=== PATIENT | male | born 1955 | race Caucasian/White ===

== ENCOUNTER 2022-06-28 11:13 | Inpatient (IN) | payer MEDICARE, MEDICAID ==
[~2022-06-28] VITALS: Ht 175.3 cm; Wt 76.2 kg
[2022-06-28] VITALS (20 sets, daily range): BP systolic 106–146; BP diastolic 49–87
[2022-06-28] MEDS ORDERED: SODIUM CHLORIDE 0.9% 1,000 ML IV ONE (11:30)
[2022-06-28 12:05] LABS: BASOPHILS % 0.3 % (0.0-2.0); EOSINOPHILS % 0.1 % (0.0-5.0); HEMATOCRIT. 52.4 % (42.0-52.0); HEMOGLOBIN. 18.3 g/dL (14.0-18.0); LYMPHOCYTES % 7.3 % (20.0-50.0); MEAN CORPUSCULAR HEMOGLOBIN 35.5 pg (28.0-32.0); MEAN CORPUSCULAR VOLUME 101.7 fL (80.0-94.0); MEAN PLATELET VOLUME 8.4 fl (7.4-10.4); MONOCYTES % 11.4 % (2.0-8.0); NEUTROPHILS % 80.9 % (40.0-76.0); PLATELET 310 x1000/uL (130-400); RED BLOOD CELL COUNT 5.16 mill/uL (4.7-6.1)
[2022-06-28 12:17] LABS: CHLORIDE 97 mEq/L (98-107)
[2022-06-28 12:19] LABS: PROTHROMBIN TIME 10.3 sec (9.6-11.0)
[2022-06-28 12:28] LABS: ETHANOL BLOOD < 10 mg/dL
[2022-06-28] MEDS ORDERED: MANNITOL 12.5G (25%) VIAL 50ML IV ONE (13:15)
[2022-06-28] MEDS ORDERED: LEVETIRACETAM 500MG PREMIX 100 ML IV ONE (13:15)
[2022-06-28] MEDS ORDERED: NICARDIPINE 40MG/200ML PREMIX 200 ML IV PRN (15:00)
[2022-06-28] MEDS ORDERED: NICARDIPINE 100 MG in SODIUM CHLORIDE 0.9% 60 ML IV PRN ×2 (18:30→18:45)
[2022-06-28] MEDS ORDERED: DEXT 5%/LACTATED RINGERS 1,000 ML IV SCH (18:30)
[2022-06-28] MEDS ORDERED: MORPHINE SULFATE 2 MG/ML CPJ (NOT FOR IM USE) IV PRN (18:30)
[2022-06-28] MEDS ORDERED: ONDANSETRON HCL 4MG/2ML INJ IV PRN (18:45)
[2022-06-28] MEDS: DEXAMETHASONE 4MG/ML 1ML VIAL IV SCH (18:57)
[2022-06-28] MEDS ORDERED: FOLIC ACID 1 MG, THIAMINE HCL 100 MG, MVI, ADULT NO.1 10 ML in DEXTROSE 5% WATER 1,000 ML IV ONE ×4 (20:00)
[2022-06-28] MEDS ORDERED: DEXT 5%/0.45% NACL KCL 10MEQ/L 1,000 ML IV ONE (20:00)
[2022-06-28] MEDS: FAMOTIDINE 20MG/2ML VIAL IV SCH (21:09)
[2022-06-28] MEDS: LEVETIRACETAM 250 MG in SODIUM CHLORIDE 0.9% 100 ML IV SCH (21:11)
[2022-06-28 21:31] LABS: VITAMIN B12 SERUM 922 pg/mL (211-911)
[2022-06-28] MEDS: PIPERACILLIN/TAZOBACTAM 3.375 G in DEXTROSE 5% WATER 50 ML IV SCH (22:35)
[2022-06-28 22:36] LABS: CLARITY URINE CLEAR (CLEAR); COLOR URINE YELLOW (YELLOW); KETONES URINE 1+ (NEGATIVE); LEUKOCYTE ESTERASE URINE NEGATIVE (NEGATIVE); NITRITE URINE NEGATIVE (NEGATIVE); OCCULT BLOOD URINE 2+ (NEGATIVE); PH URINE 5.5 (4.5-8.0); PROTEIN URINE TRACE (NEGATIVE); SPECIFIC GRAVITY URINE 1.024 (1.005-1.030)
[2022-06-28 22:42] LABS: *AMPHETAMINES SCREEN URINE NEGATIVE (NEGATIVE); *BARBITURATES SCREEN URINE NEGATIVE (NEGATIVE); *BENZODIAZEPINES SCREEN URINE NEGATIVE (NEGATIVE); *COCAINE SCREEN URINE NEGATIVE (NEGATIVE); CANNABINOID URINE SCREEN NEGATIVE (NEGATIVE); METHADONE URINE SCREEN NEGATIVE (NEGATIVE); OPIATES URINE SCREEN NEGATIVE (NEGATIVE); PHENCYCLIDINE URINE SCREEN NEGATIVE (NEGATIVE)
[2022-06-29] VITALS (57 sets, daily range): BP systolic 106–147; BP diastolic 56–90
[2022-06-29] MEDS: DEXAMETHASONE 4MG/ML 1ML VIAL IV SCH ×4 (00:43→17:45)
[2022-06-29] MEDS: DEXAMETHASONE 4MG TABLET PO SCH ×4 (05:45→17:43)
[2022-06-29] MEDS: PIPERACILLIN/TAZOBACTAM 3.375 G in DEXTROSE 5% WATER 50 ML IV SCH ×3 (05:48→22:05)
[2022-06-29 06:14] LABS: HEMATOCRIT. 46.7 % (42.0-52.0); HEMOGLOBIN. 15.7 g/dL (14.0-18.0); MEAN CORPUSCULAR HEMOGLOBIN 34.7 pg (28.0-32.0); MEAN CORPUSCULAR VOLUME 103.5 fL (80.0-94.0); MEAN PLATELET VOLUME 8.4 fl (7.4-10.4); PLATELET 275 x1000/uL (130-400); RED BLOOD CELL COUNT 4.51 mill/uL (4.7-6.1); RED CELL DISTRIBUTION WIDTH 13.7 % (11.6-14.6)
[2022-06-29 06:39] LABS: CHLORIDE 105 mEq/L (98-107)
[2022-06-29 06:47] LABS: CREATINE KINASE 800 IU/L (39-308); HDL CHOLESTEROL 87 mg/dL (40-59); LDL CHOLESTEROL 55 mg/dL (5-100)
[2022-06-29 09:23] LABS: PLATELET ESTIMATE NORMAL
[2022-06-29] MEDS: FAMOTIDINE 20MG/2ML VIAL IV SCH ×2 (10:15→22:05)
[2022-06-29] MEDS: LEVETIRACETAM 250 MG in SODIUM CHLORIDE 0.9% 100 ML IV SCH ×2 (10:15→22:05)
[2022-06-29] MEDS ORDERED: NALOXONE HCL 0.4MG/ML VIAL IV PRN (11:45)
[2022-06-30] VITALS (38 sets, daily range): BP systolic 124–171; BP diastolic 32–131
[2022-06-30 04:48] LABS: CHLORIDE 102 mEq/L (98-107)
[2022-06-30 04:55] LABS: HEMATOCRIT. 41.6 % (42.0-52.0); HEMOGLOBIN. 14.3 g/dL (14.0-18.0); MEAN CORPUSCULAR HEMOGLOBIN 35.4 pg (28.0-32.0); MEAN CORPUSCULAR VOLUME 102.8 fL (80.0-94.0); MEAN PLATELET VOLUME 8.4 fl (7.4-10.4); PLATELET 310 x1000/uL (130-400); RED BLOOD CELL COUNT 4.05 mill/uL (4.7-6.1); RED CELL DISTRIBUTION WIDTH 13.7 % (11.6-14.6)
[2022-06-30] MEDS: DEXAMETHASONE 4MG TABLET PO SCH ×2 (05:02)
[2022-06-30] MEDS: PIPERACILLIN/TAZOBACTAM 3.375 G in DEXTROSE 5% WATER 50 ML IV SCH ×3 (05:17→21:53)
[2022-06-30] MEDS: DEXAMETHASONE 4MG/ML 1ML VIAL IV SCH ×3 (05:17→09:40)
[2022-06-30 07:52] LABS: PLATELET ESTIMATE NORMAL
[2022-06-30] MEDS: LEVETIRACETAM 250 MG in SODIUM CHLORIDE 0.9% 100 ML IV SCH ×2 (09:40→21:53)
[2022-06-30] MEDS: FAMOTIDINE 20MG/2ML VIAL IV SCH ×2 (09:40→20:01)
[2022-06-30] MEDS: CHLORDIAZEPOXIDE 25MG CAPSULE PO SCH ×2 (13:00→20:01)
[2022-07-01] VITALS (82 sets, daily range): BP systolic 92–152; BP diastolic 55–107
[2022-07-01] MEDS: PIPERACILLIN/TAZOBACTAM 3.375 G in DEXTROSE 5% WATER 50 ML IV SCH ×2 (06:50→13:59)
[2022-07-01] MEDS: DEXAMETHASONE 4MG/ML 1ML VIAL IV SCH (09:16)
[2022-07-01] MEDS: FAMOTIDINE 20MG/2ML VIAL IV SCH ×2 (09:16→21:06)
[2022-07-01] MEDS: LEVETIRACETAM 250 MG in SODIUM CHLORIDE 0.9% 100 ML IV SCH ×2 (09:16→21:02)
[2022-07-01] MEDS: AMLODIPINE 10MG TABLET PO SCH (09:16)
[2022-07-01] MEDS: CHLORDIAZEPOXIDE 25MG CAPSULE PO SCH ×2 (09:20→13:58)
[2022-07-01] MEDS ORDERED: MANNITOL 20% (20GM/100ML) BAG 500ML PREMIX IV ONE (23:30)
[2022-07-01] MEDS ORDERED: MANNITOL 20% 100 ML IV NR (23:30)
[2022-07-02] VITALS (51 sets, daily range): BP systolic 103–153; BP diastolic 59–111
[2022-07-02 05:05] LABS: EOSINOPHILS % 0.1 % (0.0-5.0); HEMATOCRIT. 44.2 % (42.0-52.0); HEMOGLOBIN. 15.1 g/dL (14.0-18.0); LYMPHOCYTES % 11.7 % (20.0-50.0); MEAN CORPUSCULAR HEMOGLOBIN 35.4 pg (28.0-32.0); MEAN CORPUSCULAR VOLUME 103.4 fL (80.0-94.0); MEAN PLATELET VOLUME 7.9 fl (7.4-10.4); MONOCYTES % 13.6 % (2.0-8.0); NEUTROPHILS % 74.6 % (40.0-76.0); PLATELET 305 x1000/uL (130-400); RED BLOOD CELL COUNT 4.28 mill/uL (4.7-6.1); RED CELL DISTRIBUTION WIDTH 13.4 % (11.6-14.6)
[2022-07-02 05:21] LABS: CHLORIDE 106 mEq/L (98-107)
[2022-07-02] MEDS: FAMOTIDINE 20MG/2ML VIAL IV SCH ×2 (08:26→21:35)
[2022-07-02] MEDS: AMLODIPINE 10MG TABLET PO SCH (08:26)
[2022-07-02] MEDS: LEVETIRACETAM 250 MG in SODIUM CHLORIDE 0.9% 100 ML IV SCH ×2 (09:55→21:35)
[2022-07-03] VITALS (49 sets, daily range): BP systolic 99–157; BP diastolic 59–89
[2022-07-03 05:08] LABS: HEMATOCRIT 43.9 % (42.0-52.0); HEMOGLOBIN 14.5 g/dL (14.0-18.0); MEAN CORPUSCULAR HEMOGLOBIN 34.2 pg (28.0-32.0); MEAN CORPUSCULAR VOLUME 103.3 fL (80.0-94.0); PLATELET 334 x1000/uL (130-400); RED BLOOD CELL COUNT 4.25 mill/uL (4.7-6.1); RED CELL DISTRIBUTION WIDTH 13.6 % (11.6-14.6)
[2022-07-03 05:30] LABS: CHLORIDE 107 mEq/L (98-107)
[2022-07-03] MEDS: AMLODIPINE 10MG TABLET PO SCH (08:07)
[2022-07-03] MEDS: FAMOTIDINE 20MG/2ML VIAL IV SCH ×2 (08:07→21:42)
[2022-07-03] MEDS: LEVETIRACETAM 250 MG in SODIUM CHLORIDE 0.9% 100 ML IV SCH ×2 (08:59→21:42)
[2022-07-03] MEDS: ERYTHROMYCIN BASE 0.5% OPHTH OINT 3.5GM LEFTEYE SCH ×2 (15:04→21:43)
[2022-07-04] VITALS (25 sets, daily range): BP systolic 110–169; BP diastolic 67–104
[2022-07-04] MEDS: ERYTHROMYCIN BASE 0.5% OPHTH OINT 3.5GM LEFTEYE SCH ×3 (06:39→21:10)
[2022-07-04] MEDS: FAMOTIDINE 20MG/2ML VIAL IV SCH ×2 (08:12→20:51)
[2022-07-04] MEDS: AMLODIPINE 10MG TABLET PO SCH (08:12)
[2022-07-04] MEDS: LEVETIRACETAM 250 MG in SODIUM CHLORIDE 0.9% 100 ML IV SCH ×2 (08:12→21:00)
[2022-07-05 00:22] VITALS: BP 123/78
[2022-07-05 04:11] VITALS: BP 117/73
[2022-07-05] MEDS: ERYTHROMYCIN BASE 0.5% OPHTH OINT 3.5GM LEFTEYE SCH ×3 (05:27→20:58)
[2022-07-05 08:00] VITALS: BP 122/71
[2022-07-05] MEDS: AMLODIPINE 10MG TABLET PO SCH (09:00)
[2022-07-05] MEDS: FAMOTIDINE 20MG/2ML VIAL IV SCH ×2 (09:31→20:58)
[2022-07-05] MEDS: LEVETIRACETAM 250 MG in SODIUM CHLORIDE 0.9% 100 ML IV SCH ×2 (09:31→20:57)
[2022-07-05] MEDS ORDERED: BARIUM SULFATE 176 GM SUSP.RECON ONE (11:00)
[2022-07-05 16:00] VITALS: BP 114/67
[2022-07-05 20:00] VITALS: BP 116/68
[2022-07-06] VITALS: BP 129/84
[2022-07-06 04:00] VITALS: BP 110/69
[2022-07-06] MEDS: ERYTHROMYCIN BASE 0.5% OPHTH OINT 3.5GM LEFTEYE SCH ×3 (05:12→21:25)
[2022-07-06 08:00] VITALS: BP 125/87
[2022-07-06] MEDS: LEVETIRACETAM 250 MG in SODIUM CHLORIDE 0.9% 100 ML IV SCH (09:15)
[2022-07-06] MEDS: FAMOTIDINE 20MG/2ML VIAL IV SCH (09:15)
[2022-07-06] MEDS: AMLODIPINE 10MG TABLET PO SCH (09:16)
[2022-07-06] MEDS: DOCUSATE SODIUM SUGAR FREE 100MG/10ML UDC PO SCH (11:59)
[2022-07-06 12:00] VITALS: BP 127/77
[2022-07-06 13:26] LABS: BASOPHILS % 0.5 % (0.0-2.0); EOSINOPHILS % 0.7 % (0.0-5.0); HEMATOCRIT. 42.8 % (42.0-52.0); HEMOGLOBIN. 14.6 g/dL (14.0-18.0); LYMPHOCYTES % 7.3 % (20.0-50.0); MEAN CORPUSCULAR HEMOGLOBIN 34.6 pg (28.0-32.0); MEAN CORPUSCULAR VOLUME 101.7 fL (80.0-94.0); MEAN PLATELET VOLUME 8.5 fl (7.4-10.4); MONOCYTES % 12.2 % (2.0-8.0); NEUTROPHILS % 79.3 % (40.0-76.0); PLATELET 404 x1000/uL (130-400); RED BLOOD CELL COUNT 4.21 mill/uL (4.7-6.1); RED CELL DISTRIBUTION WIDTH 13.5 % (11.6-14.6)
[2022-07-06 13:34] LABS: PROTHROMBIN TIME 10.5 sec (9.6-11.0)
[2022-07-06 14:33] LABS: CHLORIDE 106 mEq/L (98-107)
[2022-07-06 16:00] VITALS: BP 120/80
[2022-07-06 20:00] VITALS: BP 119/73
[2022-07-06] MEDS: SENNOSIDES 8.6MG TABLET PO SCH (21:24)
[2022-07-06] MEDS: FAMOTIDINE 20MG TABLET PO SCH (21:24)
[2022-07-06] MEDS: LEVETIRACETAM 250MG TABLET PO SCH (21:31)
[2022-07-07] VITALS: BP 118/72
[2022-07-07 04:00] VITALS: BP 107/71
[2022-07-07] MEDS: ERYTHROMYCIN BASE 0.5% OPHTH OINT 3.5GM LEFTEYE SCH ×3 (06:20→21:25)
[2022-07-07 08:00] VITALS: BP 114/68
[2022-07-07] MEDS: DOCUSATE SODIUM SUGAR FREE 100MG/10ML UDC PO SCH (09:08)
[2022-07-07] MEDS: FAMOTIDINE 20MG TABLET PO SCH ×2 (09:09→20:15)
[2022-07-07] MEDS: AMLODIPINE 10MG TABLET PO SCH (09:09)
[2022-07-07] MEDS: LEVETIRACETAM 250MG TABLET PO SCH ×2 (09:11→20:16)
[2022-07-07 12:00] VITALS: BP 104/71
[2022-07-07 16:00] VITALS: BP 112/70
[2022-07-07 20:00] VITALS: BP 114/71
[2022-07-07] MEDS: SENNOSIDES 8.6MG TABLET PO SCH (20:16)
[2022-07-08] VITALS: BP 106/68
[2022-07-08 04:00] VITALS: BP_SYST 104; BP_SYST 111; BP_DIAS 68; BP_DIAS 74
[2022-07-08] MEDS: ERYTHROMYCIN BASE 0.5% OPHTH OINT 3.5GM LEFTEYE SCH ×3 (05:14→21:11)
[2022-07-08 08:00] VITALS: BP 113/70
[2022-07-08] MEDS: LEVETIRACETAM 250MG TABLET PO SCH ×2 (09:32→21:10)
[2022-07-08] MEDS: AMLODIPINE 10MG TABLET PO SCH (09:32)
[2022-07-08] MEDS: FAMOTIDINE 20MG TABLET PO SCH ×2 (09:32→21:11)
[2022-07-08] MEDS: DOCUSATE SODIUM SUGAR FREE 100MG/10ML UDC PO SCH (09:33)
[2022-07-08 12:00] VITALS: BP 119/69
[2022-07-08 16:00] VITALS: BP 104/68
[2022-07-08 20:00] VITALS: BP 124/75
[2022-07-08] MEDS: SENNOSIDES 8.6MG TABLET PO SCH (21:11)
[2022-07-08] MEDS: ACETAMINOPHEN 325MG TABLET PO PRN (21:12)
[2022-07-09] VITALS (11 sets, daily range): BP systolic 106–135; BP diastolic 73–87
[2022-07-09] MEDS: ERYTHROMYCIN BASE 0.5% OPHTH OINT 3.5GM LEFTEYE SCH ×3 (06:01→22:33)
[2022-07-09] MEDS: AMLODIPINE 10MG TABLET PO SCH (09:00)
[2022-07-09] MEDS: DOCUSATE SODIUM SUGAR FREE 100MG/10ML UDC PO SCH (09:15)
[2022-07-09] MEDS: FAMOTIDINE 20MG TABLET PO SCH ×2 (09:15→22:31)
[2022-07-09] MEDS: LEVETIRACETAM 250MG TABLET PO SCH ×2 (09:16→22:31)
[2022-07-09] MEDS: SENNOSIDES 8.6MG TABLET PO SCH (22:31)
[2022-07-10] VITALS (10 sets, daily range): BP systolic 105–136; BP diastolic 64–80
[2022-07-10] MEDS: ERYTHROMYCIN BASE 0.5% OPHTH OINT 3.5GM LEFTEYE SCH ×2 (07:13→15:37)
[2022-07-10] MEDS: AMLODIPINE 10MG TABLET PO SCH (09:09)
[2022-07-10] MEDS: FAMOTIDINE 20MG TABLET PO SCH ×2 (09:09→20:48)
[2022-07-10] MEDS: DOCUSATE SODIUM SUGAR FREE 100MG/10ML UDC PO SCH (09:09)
[2022-07-10] MEDS: LEVETIRACETAM 250MG TABLET PO SCH ×2 (09:09→20:48)
[2022-07-10] MEDS: SENNOSIDES 8.6MG TABLET PO SCH (20:48)
[2022-07-11] VITALS: BP 94/63
[2022-07-11 04:00] VITALS: BP 107/71
[2022-07-11 08:00] VITALS: BP 113/67
[2022-07-11] MEDS: DOCUSATE SODIUM SUGAR FREE 100MG/10ML UDC PO SCH (09:21)
[2022-07-11] MEDS: FAMOTIDINE 20MG TABLET PO SCH ×2 (09:22→20:53)
[2022-07-11] MEDS: LEVETIRACETAM 250MG TABLET PO SCH ×2 (09:22→20:53)
[2022-07-11] MEDS: AMLODIPINE 10MG TABLET PO SCH (09:22)
[2022-07-11 12:00] VITALS: BP 112/72
[2022-07-11 16:00] VITALS: BP 111/70
[2022-07-11 20:00] VITALS: BP 126/78
[2022-07-11] MEDS: SENNOSIDES 8.6MG TABLET PO SCH (20:53)
[2022-07-12] VITALS: BP 115/75
[2022-07-12 04:00] VITALS: BP 134/84
[2022-07-12 08:00] VITALS: BP 123/72
[2022-07-12] MEDS: AMLODIPINE 10MG TABLET PO SCH (08:32)
[2022-07-12] MEDS: DOCUSATE SODIUM SUGAR FREE 100MG/10ML UDC PO SCH (08:33)
[2022-07-12] MEDS: FOLIC ACID 1MG TABLET PO SCH (08:33)
[2022-07-12] MEDS: FAMOTIDINE 20MG TABLET PO SCH ×2 (08:33→21:08)
[2022-07-12] MEDS: LEVETIRACETAM 250MG TABLET PO SCH ×2 (08:33→21:08)
[2022-07-12] MEDS: MULTIVITAMINS,THER W-MINERALS TABLET PO SCH (08:33)
[2022-07-12] MEDS: THIAMINE HCL 100MG TABLET PO SCH (08:40)
[2022-07-12 12:00] VITALS: BP 147/89
[2022-07-12 16:00] VITALS: BP 110/74
[2022-07-12 20:00] VITALS: BP 112/70
[2022-07-12] MEDS: SENNOSIDES 8.6MG TABLET PO SCH (21:08)
[2022-07-13] VITALS: BP 134/93
[2022-07-13 04:00] VITALS: BP 124/78
[2022-07-13 08:00] VITALS: BP 113/71
[2022-07-13] MEDS: THIAMINE HCL 100MG TABLET PO SCH (09:21)
[2022-07-13] MEDS: DOCUSATE SODIUM SUGAR FREE 100MG/10ML UDC PO SCH (09:21)
[2022-07-13] MEDS: FOLIC ACID 1MG TABLET PO SCH (09:21)
[2022-07-13] MEDS: FAMOTIDINE 20MG TABLET PO SCH ×2 (09:21→20:32)
[2022-07-13] MEDS: MULTIVITAMINS,THER W-MINERALS TABLET PO SCH (09:21)
[2022-07-13] MEDS: AMLODIPINE 10MG TABLET PO SCH (09:21)
[2022-07-13] MEDS: LEVETIRACETAM 250MG TABLET PO SCH ×2 (09:21→20:32)
[2022-07-13 12:00] VITALS: BP_SYST 100; BP_SYST 122; BP_DIAS 65; BP_DIAS 89
[2022-07-13 16:00] VITALS: BP 108/65
[2022-07-13 20:00] VITALS: BP 114/69
[2022-07-13] MEDS: SENNOSIDES 8.6MG TABLET PO SCH (20:32)
[2022-07-14] VITALS: BP 120/72
[2022-07-14 04:00] VITALS: BP 115/75
[2022-07-14 08:00] VITALS: BP 115/75
[2022-07-14] MEDS: DOCUSATE SODIUM SUGAR FREE 100MG/10ML UDC PO SCH (09:35)
[2022-07-14] MEDS: FOLIC ACID 1MG TABLET PO SCH (09:36)
[2022-07-14] MEDS: FAMOTIDINE 20MG TABLET PO SCH ×2 (09:36→21:31)
[2022-07-14] MEDS: LEVETIRACETAM 250MG TABLET PO SCH ×2 (09:36→21:31)
[2022-07-14] MEDS: AMLODIPINE 10MG TABLET PO SCH (09:36)
[2022-07-14] MEDS: MULTIVITAMINS,THER W-MINERALS TABLET PO SCH (09:36)
[2022-07-14] MEDS: THIAMINE HCL 100MG TABLET PO SCH (09:50)
[2022-07-14 12:00] VITALS: BP 115/72
[2022-07-14 16:00] VITALS: BP 102/69
[2022-07-14 20:00] VITALS: BP 114/66
[2022-07-14] MEDS: SENNOSIDES 8.6MG TABLET PO SCH (21:31)
[2022-07-14 21:46] LABS: BASOPHILS % 0.9 % (0.0-2.0); CHLORIDE 105 mEq/L (98-107); EOSINOPHILS % 1.7 % (0.0-5.0); HEMATOCRIT. 40.5 % (42.0-52.0); HEMOGLOBIN. 13.9 g/dL (14.0-18.0); LYMPHOCYTES % 17.3 % (20.0-50.0); MEAN CORPUSCULAR HEMOGLOBIN 34.6 pg (28.0-32.0); MEAN CORPUSCULAR VOLUME 101.2 fL (80.0-94.0); MEAN PLATELET VOLUME 8.7 fl (7.4-10.4); MONOCYTES % 10.2 % (2.0-8.0); NEUTROPHILS % 69.9 % (40.0-76.0); PLATELET 406 x1000/uL (130-400); RED BLOOD CELL COUNT 4.01 mill/uL (4.7-6.1); RED CELL DISTRIBUTION WIDTH 13.2 % (11.6-14.6)
[2022-07-15] VITALS: BP 115/76
[2022-07-15 04:00] VITALS: BP 110/80
[2022-07-15 08:00] VITALS: BP 107/73
[2022-07-15] MEDS: AMLODIPINE 10MG TABLET PO SCH (09:00)
[2022-07-15] MEDS: THIAMINE HCL 100MG TABLET PO SCH (09:07)
[2022-07-15] MEDS: FAMOTIDINE 20MG TABLET PO SCH ×2 (09:07→20:13)
[2022-07-15] MEDS: DOCUSATE SODIUM SUGAR FREE 100MG/10ML UDC PO SCH (09:07)
[2022-07-15] MEDS: LEVETIRACETAM 250MG TABLET PO SCH ×2 (09:07→20:13)
[2022-07-15] MEDS: FOLIC ACID 1MG TABLET PO SCH (09:07)
[2022-07-15] MEDS: MULTIVITAMINS,THER W-MINERALS TABLET PO SCH (09:07)
[2022-07-15 12:00] VITALS: BP 104/69
[2022-07-15 16:00] VITALS: BP 116/71
[2022-07-15 20:00] VITALS: BP 123/75
[2022-07-15] MEDS: SENNOSIDES 8.6MG TABLET PO SCH (20:13)
[2022-07-16] VITALS: BP 112/72
[2022-07-16 04:00] VITALS: BP 122/70
[2022-07-16 08:00] VITALS: BP 134/91
[2022-07-16] MEDS: DOCUSATE SODIUM SUGAR FREE 100MG/10ML UDC PO SCH (09:00)
[2022-07-16 12:00] VITALS: BP 114/71
[2022-07-16] MEDS: FOLIC ACID 1MG TABLET PO SCH (12:25)
[2022-07-16] MEDS: AMLODIPINE 10MG TABLET PO SCH (12:26)
[2022-07-16] MEDS: LEVETIRACETAM 250MG TABLET PO SCH ×2 (12:26→20:51)
[2022-07-16] MEDS: FAMOTIDINE 20MG TABLET PO SCH ×2 (12:27→20:51)
[2022-07-16] MEDS: THIAMINE HCL 100MG TABLET PO SCH (12:27)
[2022-07-16] MEDS: MULTIVITAMINS,THER W-MINERALS TABLET PO SCH (12:27)
[2022-07-16] MEDS: ACETAMINOPHEN 325MG TABLET PO PRN (12:28)
[2022-07-16 16:00] VITALS: BP 106/65
[2022-07-16 20:00] VITALS: BP 95/57
[2022-07-16] MEDS: SENNOSIDES 8.6MG TABLET PO SCH (20:52)
[2022-07-17] VITALS: BP 116/77
[2022-07-17 04:00] VITALS: BP 94/58
[2022-07-17 07:15] LABS: HEMATOCRIT 41.5 % (42.0-52.0); HEMOGLOBIN 14.2 g/dL (14.0-18.0); MEAN CORPUSCULAR HEMOGLOBIN 34.6 pg (28.0-32.0); MEAN CORPUSCULAR VOLUME 100.9 fL (80.0-94.0); PLATELET 363 x1000/uL (130-400); RED BLOOD CELL COUNT 4.11 mill/uL (4.7-6.1); RED CELL DISTRIBUTION WIDTH 13.6 % (11.6-14.6)
[2022-07-17 08:00] VITALS: BP 135/68
[2022-07-17 08:57] LABS: CHLORIDE 108 mEq/L (98-107)
[2022-07-17] MEDS: FAMOTIDINE 20MG TABLET PO SCH ×2 (09:33→20:18)
[2022-07-17] MEDS: FOLIC ACID 1MG TABLET PO SCH (09:33)
[2022-07-17] MEDS: THIAMINE HCL 100MG TABLET PO SCH (09:33)
[2022-07-17] MEDS: AMLODIPINE 10MG TABLET PO SCH (09:42)
[2022-07-17] MEDS: LEVETIRACETAM 250MG TABLET PO SCH ×2 (09:42→20:18)
[2022-07-17] MEDS: DOCUSATE SODIUM SUGAR FREE 100MG/10ML UDC PO SCH (09:43)
[2022-07-17] MEDS: MULTIVITAMINS,THER W-MINERALS TABLET PO SCH (09:45)
[2022-07-17 12:00] VITALS: BP 112/72
[2022-07-17 16:00] VITALS: BP 114/83
[2022-07-17 20:00] VITALS: BP 116/74
[2022-07-17] MEDS: SENNOSIDES 8.6MG TABLET PO SCH (20:18)
[2022-07-18] VITALS: BP 115/79
[2022-07-18 04:00] VITALS: BP 120/77
[2022-07-18 08:00] VITALS: BP 102/55
[2022-07-18] MEDS: AMLODIPINE 10MG TABLET PO SCH (09:00)
[2022-07-18] MEDS: FAMOTIDINE 20MG TABLET PO SCH ×2 (09:47→20:34)
[2022-07-18] MEDS: FOLIC ACID 1MG TABLET PO SCH (09:47)
[2022-07-18] MEDS: DOCUSATE SODIUM SUGAR FREE 100MG/10ML UDC PO SCH (09:47)
[2022-07-18] MEDS: LEVETIRACETAM 250MG TABLET PO SCH ×2 (09:48→20:33)
[2022-07-18] MEDS: MULTIVITAMINS,THER W-MINERALS TABLET PO SCH (09:48)
[2022-07-18] MEDS: THIAMINE HCL 100MG TABLET PO SCH (09:55)
[2022-07-18 12:00] VITALS: BP 126/77
[2022-07-18 16:00] VITALS: BP 115/76
[2022-07-18] MEDS: SENNOSIDES 8.6MG TABLET PO SCH (20:33)
[2022-07-19] VITALS (7 sets, daily range): BP systolic 99–124; BP diastolic 57–84
[2022-07-19] MEDS: DOCUSATE SODIUM SUGAR FREE 100MG/10ML UDC PO SCH (09:02)
[2022-07-19] MEDS: FOLIC ACID 1MG TABLET PO SCH (09:03)
[2022-07-19] MEDS: FAMOTIDINE 20MG TABLET PO SCH (09:03)
[2022-07-19] MEDS: THIAMINE HCL 100MG TABLET PO SCH (09:03)
[2022-07-19] MEDS: MULTIVITAMINS,THER W-MINERALS TABLET PO SCH (09:03)
[2022-07-19] MEDS: LEVETIRACETAM 250MG TABLET PO SCH (09:04)
[2022-07-19] MEDS: AMLODIPINE 10MG TABLET PO SCH (09:04)
== END 2022-07-19 20:46 | DRG 65 ==
LOC: ER 11:13 → MICUSO 15:54 → EDBEDREQTM 16:00 → EDBEDREQ 16:00 → EDBEDREQSVC 16:00 → 7EST 07-04 19:05 → 6EST 07-15 09:39
PROVIDERS: ADMIT Internal Medicine Pulmonary Disease; ATTEND Internal Medicine Pulmonary Disease
DX: I61.3 Nontraumatic intracerebral hemorrhage in brain stem (principal); G81.91 Hemiplegia, unspecified affecting right dominant side; N17.9 Acute kidney failure, unspecified; G93.40 Encephalopathy, unspecified; R47.01 Aphasia; I10 Essential (primary) hypertension; Z20.822 Contact with and (suspected) exposure to COVID-19; D72.829 Elevated white blood cell count, unspecified; R53.1 Weakness; R13.10 Dysphagia, unspecified; G51.0 Bell's palsy; F10.10 Alcohol abuse, uncomplicated; Z86.73 Personal history of transient ischemic attack (TIA), and cerebral infarction without residual deficits
CPT/HCPCS: 36415; 70544; 70553; 71045; 74230; 80048; 80053; 80061; 80305; 80320; 81003; 82040; 82140; 82550; 82607; 82746; 82962; 83605; 84134; 84155; 84443; 84484; 85025; 85027; 87426; 92610; 92611; 93005; 97110; 97112; 97162; 97164; 97166; 97530; 97535; 99291; C1893; C9803; J1100; J1953; J2150; J2543; J3411; J3490; J7030; J7050; J7060; J7070; J8540; G0480